=== PATIENT | female | born 1965 | race Two or more races ===

== ENCOUNTER → 2016-09-29 | Outpatient (CLI) | payer OTHER ==
--- NOTE | ~2016-09-29 | US17 ---
[facility] A Service of [facility] & [facility] RADIOLOGY TEXT RESULTS PATIENT: COURTNEY PITTMAN LOCATION: [facility] : 65 UNIT #: [id number] AGE: [address]: Frandy Rouse MD SEX: F ORDER DR: [id number] [facility] [address] [place], [place] [address] [id number] O MR#: [id number] Acc #: [id number] NAME: COURTNEY PITTMAN : 1965 SEX: F STUDY DATE/TIME: 09/29/2016 9:41 UNIT: [facility] ROOM: STUDY DESCRIPTION: US Breast Bilateral Attending Physician: Frandy Rouse M.D. Referring Physician: Frandy Rouse M.D. Ordering Physician: Frandy Rouse M.D. Primary Care Physician: Frandy Rouse M.D. MEDICAL IMAGING REPORT This report is preliminary unless electronic signature is present EXAM Targeted ultrasound of the right and left breast, 09/29/2016 HISTORY FINDINGS Please see bilateral diagnostic mammogram same date for results. Patients over the age of 40 are entered into a reminder system with target due date for the next mammogram. A result letter will also be sent to the patient. BIRADS: 3 Probably Benign Finding; Short interval follow-up suggested Dictated by... Bob Martin M.D. THIS IS AN ELECTRONICALLY VERIFIED REPORT Bob Martin M.D. at 09/29/2016 4:24 PM Nelson TD: 09/29/2016 13:07 JOB #: [id number] MEDICAL IMAGING REPORT Page 1 of 1 COPY
--- NOTE | ~2016-09-29 | MY26 ---
[facility] A Service of [facility] & [facility] RADIOLOGY TEXT RESULTS PATIENT: COURTNEY PITTMAN LOCATION: [facility] : 65 UNIT #: [id number] AGE: [address]: Frandy Rouse MD SEX: F ORDER DR: [id number] [facility] [address] [facility] [place], [place] [address] [id number] O MR#: [id number] Acc #: [id number] NAME: COURTNEY PITTMAN : 1965 SEX: F STUDY DATE/TIME: 09/29/2016 9:09 UNIT: [facility] ROOM: STUDY DESCRIPTION: MY [facility] DIAGNOSTIC W/ CAD BILAT Attending Physician: Frandy Rouse M.D. Referring Physician: Frandy Rouse M.D. Ordering Physician: Frandy Rouse M.D. Primary Care Physician: Frandy Rouse M.D. MEDICAL IMAGING REPORT This report is preliminary unless electronic signature is present EXAM Bilateral digital diagnostic mammogram and bilateral targeted breast ultrasound, 09/29/2016. INDICATION 51-year-old female complaining of a nodule in the left breast that has been previously evaluated in [place] 2 years ago. She reports that the nodule has been present for ovary year and is nonpalpable but has been visible on prior mammogram or ultrasound studies. She reports no personal or family history of breast cancer or prior surgeries. TECHNIQUE CC, MLO and true lateral views of both breasts were obtained and reviewed with an FDA-approved CAD device. Additional spot compression views were obtained on the left along with an exaggerated CC lateral view. COMPARISON We have no comparison exams. Her prior imaging studies have been performed in [place] and this will serve as her new baseline study as the prior exams cannot be obtained. FINDINGS Communication with the patient was facilitated by a telephone computational theory scientist throughout the patient encounter here in the department today. MAMMOGRAM FINDINGS: Breast parenchyma is composed of scattered fibroglandular densities. There is asymmetric mild fibroglandular prominence in the posterior upper outer left breast. There is no suspicious cluster of microcalcifications. Benign calcifications are present. There is no dominant mass in either breast. In the 8-9 o'clock position of the right breast, there is a tiny probable intramammary node measuring about 5 mm. This was subsequently further evaluated with targeted ultrasound. In the posterior upper outer hemisphere left breast, [facility] A Service of [facility] RADIOLOGY TEXT RESULTS PATIENT: COURTNEY PITTMAN LOCATION: [facility] : 65 UNIT #: [id number] AGE: [address]: Frandy Rouse MD SEX: F ORDER DR: there is asymmetrically prominent breast tissue with suggestion of some faint nodularity on some images, but not seen on all images. This was also subsequently, further assessed with ultrasound. There is a benign-appearing axillary lymph node on the left. ULTRASOUND FINDINGS: The patient was initially scanned independently by the technologist and then rescanned in my presence. RIGHT BREAST: In the 8 o'clock position right breast, there is a tiny benign intramammary node measuring about 5 mm. This corresponds to the mammographic finding and is benign. Imaging of the right breast was performed with attention to the 8 o'clock position and is otherwise negative. LEFT BREAST: Imaging of the left breast was performed in the posterior upper outer quadrant and in the axillary tail region. The patient denies a palpable abnormality in either breast but reports that a "nodule" has been visualized in the left breast previously. She indicated that measured up to about 1.4 cm. Imaging of the upper outer quadrant left breast in the area of the patient's asymmetrically prominent breast tissue mammographically demonstrates mildly prominent breast tissue and a hypoechoic small solid nodule that is wider than tall demonstrating increased through transmission and relatively well-defined margins. It measures about 8 x 5 x 10 mm. This does not appear to represent an intramammary lymph node but has imaging features suggestive of a probably benign small fibroadenoma. This is at 2 o'clock 10 cm from the nipple. Imaging of the upper outer left breast otherwise demonstrates a small intramammary node at 2 o'clock measuring 9 mm x 12 mm. There is also a prominent axillary node on the left measuring up to 2 cm. Ultrasound of the upper outer quadrant from 12 o'clock to 3 o'clock is otherwise negative and concordant with mammographic imaging. Findings regarding the probably benign fibroadenoma at 2 o'clock in the left breast were discussed with the patient. Options regarding 6-month followup of the nodule with ultrasound or tissue sampling were discussed with the patient. At this point, she has elected for 6-month followup imaging but has indicated she may decide to proceed with tissue sampling in lieu of 6-month followup. The patient was informed that she should plan to return for 6-month followup imaging with ultrasound absent a decision to proceed with biopsy. She has voiced understanding and agreement through the assistance of the telephone computational theory scientist. IMPRESSION 1. In the posterior upper outer quadrant left breast, 10 cm from the nipple, at the 2 o'clock position, there is a probably benign nodule measuring up to about 10 mm. This likely represent a small fibroadenoma. At this point, the patient has elected for 6-month followup imaging with ultrasound to document expected stability. If she decides to proceed with biopsy instead of scheduled followup that [facility] A Service of [facility] RADIOLOGY TEXT RESULTS PATIENT: COURTNEY PITTMAN LOCATION: [facility] : 65 UNIT #: [id number] AGE: [address]: Frandy Rouse MD SEX: F ORDER DR: would be scheduled at her convenience. This has also been discussed with the patient and she has voiced understanding and agreement. 2. Small intramammary nodes bilaterally with benign features. Benign-appearing axillary node. 3. All these findings and recommendations were discussed with the patient here in the department. She voiced understanding and agreement. Patients over the age of 40 are entered into a reminder system with target due date for the next mammogram. A result letter will also be sent to the patient. BIRADS: 3 Probably benign finding; short interval follow-up suggested. Dictated by... Bob Martin M.D. THIS IS AN ELECTRONICALLY VERIFIED REPORT Bob Martin M.D. at 09/29/2016 4:24 PM Ai TD: 09/29/2016 13:37 JOB #: [id number] MEDICAL IMAGING REPORT Page 1 of 1 COPY
== END | disposition home or self-care (01) ==
LOC: CMAM 09-17 09:30
DX: N63 Unspecified lump in breast (principal)
CPT/HCPCS: 76641; G0204